=== PATIENT | female | born 1955 | race Caucasian/White ===

== ENCOUNTER 2018-07-03 08:33 | Inpatient (IN) ==
[2018-06-26 17:33] LABS: Basophils # (Auto) 0 K/mcL (0.0-0.3); Basophils % (Auto) 0.3 % (0.0-2.0); Eosinophils # (Auto) 0 K/mcL (0.0-0.7); Eosinophils % (Auto) 0.3 % (0.0-7.0); Lymphocytes % (Auto) 16.3 % (15.5-49.0); Mean Cell Volume 95.7 fL (80.0-100.0); Mean Corpuscular HGB Conc 34.2 g/dL (31.0-36.0); Mean Corpuscular Hemoglobin 32.7 pg (26.0-34.0); Monocytes # (Auto) 0.6 K/mcL (0.1-0.9); Monocytes % (Auto) 9.1 % (1.0-12.0); Platelet Count 276 K/mcL (140-440); Red Cell Distribution Width 12.6 % (11.5-14.5)
[2018-06-26 17:57] LABS: Blood Urea Nitrogen 5 mg/dl (8-23)
[2018-06-26 18:12] LABS: Appearance,Urine CLEAR; Bilirubin,Urine NEG (NEG); Color,Urine YELLOW; Glucose,Urine (UA) 150 mg/dL (NEG); Leukocyte Esterase,Urine NEG /uL (NEG); Protein,Urine NEG (NEG); Specific Gravity,Urine 1.014 (1.000-1.035); Urine Blood NEG mg/dL (<0.03)
[2018-06-26 19:00] LABS: Estimated Average Glucose(eAG) 111 mg/dL; Hemoglobin A1C 5.5 % HGB (4.0-6.0)
[~2018-07-03 08:33] MED LIST: 0.9 % SODIUM CHLORIDE 9 ML, KETOROLAC 30 MG, ROPIVACAINE HCL/PF 49.5 ML, EPINEPHrine 0.... IJ SCH; CELECOXIB 200 MG CAPSULE PO SCH; GABAPENTIN 300 MG CAPSULE PO SCH; ceFAZolin 1 GM VIAL IV SCH; oxyCODONE 10 MG TAB.ER.12H PO SCH
[2018-07-03] MEDS ORDERED: ONDANSETRON 4 MG/2 ML VIAL IV ONE (13:30)
[2018-07-03] MEDS ORDERED: MIDAZOLAM 5 MG/5 ML VIAL IV ONE (13:30)
[2018-07-03] MEDS ORDERED: PROPOFOL 200 MG/20 ML VIAL IV ONE (13:30)
[2018-07-03] MEDS ORDERED: TRANEXAMIC ACID 1,000 MG/10 ML VIAL IV ONE (13:30)
[2018-07-03] MEDS ORDERED: ROPIVACAINE HCL/PF 20 ML VIAL IJ ONE (13:30)
[2018-07-03] MEDS ORDERED: GLYCOPYRROLATE 0.2 MG/ML VIAL IV ONE (13:30)
[2018-07-03] MEDS ORDERED: LIDOCAINE HCL/PF 100 MG/5 ML SYRINGE IV ONE (13:30)
[2018-07-03] MEDS ORDERED: DEXAMETHASONE 10 MG/ML VIAL IV ONE (13:30)
[2018-07-03] MEDS ORDERED: ATROPINE SULFATE 0.4 MG/ML VIAL IV PRN (14:38)
[2018-07-03] MEDS ORDERED: ONDANSETRON 4 MG/2 ML VIAL IV PRN ×2 (14:38→15:09)
[2018-07-03] MEDS ORDERED: METHOCARBAMOL 1,000 MG/10 ML VIAL IV PRN (14:38)
[2018-07-03] MEDS ORDERED: MEPERIDINE 25 MG/ML SYRINGE IV PRN (14:38)
[2018-07-03] MEDS ORDERED: PROMETHAZINE 25 MG/ML VIAL IV PRN (14:38)
[2018-07-03] MEDS ORDERED: NALOXONE HCL 0.4 MG/ML VIAL IV PRN (14:38)
[2018-07-03] MEDS ORDERED: ACETAMINOPHEN 1,000 MG/100 ML BOTTLE IV ONE (14:38)
[2018-07-03] MEDS ORDERED: diphenhydrAMINE 50 MG/ML VIAL IV PRN (14:38)
[2018-07-03] MEDS ORDERED: METOPROLOL TARTRATE 5 MG/5 ML VIAL IV PRN (14:38)
[2018-07-03] MEDS ORDERED: ePHEDrine 50 MG/ML AMPUL IV PRN (14:38)
[2018-07-03] MEDS ORDERED: IPRATROPIUM/ALBUTEROL 3 ML AMPUL.NEB NEB PRN (14:38)
[2018-07-03] MEDS ORDERED: HYDROmorphone 2 MG/ML VIAL IV PRN ×2 (14:38→15:09)
[2018-07-03] MEDS ORDERED: FLUMAZENIL 0.1 MG/ML ML IV PRN (14:38)
[2018-07-03] MEDS ORDERED: LACTATED RINGERS 1,000 ML IV SCH (14:45)
--- NOTE | 2018-07-03 15:08 | Brief Operative Note ---
Date of procedure: 07/03/18 Pre-op diagnosis: Left knee DJD Post-op diagnosis: same Procedure: Left robotic assisted total knee arthroplasty Grafts/Implants: Yes (Chalo Triathlon CR 3 femur, 2 tibia, 9mm insert, 33 patella) Anesthesia: spinal, GLMA Findings: arthritis Complications: none Surgeon: Giovany Conti Picker / Packer: Joseluis Ramon Estimated blood loss (cc): 30 Specimens Removed/Pathology: none sent Condition: stable Disposition: PACU
[2018-07-03] MEDS ORDERED: MAGNESIUM HYDROXIDE 30 ML ORAL.SUSP PO PRN (15:09)
[2018-07-03] MEDS ORDERED: TRANEXAMIC ACID 1,000 MG/10 ML VIAL IV SCH (15:09)
[2018-07-03] MEDS ORDERED: FLEETS ADULT ENEMA PR PRN (15:09)
[2018-07-03] MEDS ORDERED: BISACODYL 10 MG SUPP.RECT PR PRN (15:09)
[2018-07-03] MEDS ORDERED: POLYETHYLENE GLYCOL 3350 17 GM PACKET PO PRN (15:09)
[2018-07-03] MEDS ORDERED: BENZOCAINE/MENTHOL 1 LOZENGE PO PRN (15:09)
[2018-07-03] MEDS ORDERED: DEXTROSE 31 GM ORAL.SUSP PO PRN (15:13)
[2018-07-03] MEDS ORDERED: DEXTROSE 50% 50 ML VIAL IV PRN (15:13)
[2018-07-03] MEDS: fentaNYL 100 MCG/2 ML VIAL IV PRN ×2 (16:01→16:08)
[2018-07-03] MEDS: 0.9 % SODIUM CHLORIDE 1,000 ML IV SCH (16:36)
--- NOTE | 2018-07-03 16:47 | XRay Report ---
CLINICAL INFORMATION: ITS.REASON: Post-op total knee COMPARISON: None. FINDINGS: Total knee prostheses is anatomically aligned. No osseous abnormality. Periarticular gas and soft tissue swelling seen as expected. IMPRESSION: Negative Interpreted and Authenticated by: Cain Carver 07/03/18
[2018-07-03] MEDS: KETOROLAC 30 MG/ML VIAL IV SCH (17:29)
[2018-07-03] MEDS: INSULIN LISPRO 1 UNIT/0.01 ML UNIT SQ SCH ×2 (17:32→21:15)
[2018-07-03] MEDS: metFORMIN 500 MG TABLET PO SCH (17:32)
[2018-07-03] MEDS: oxyCODONE/APAP 5/325MG TABLET PO PRN ×2 (18:34→22:26)
[2018-07-03] MEDS: ceFAZolin 1 GM VIAL IV SCH (21:13)
[2018-07-03] MEDS: BRIMONIDINE OPHTH DROPS 1 GTT BOTTLE 5ML OU SCH (21:14)
[2018-07-03] MEDS: BENZTROPINE 1 MG TABLET PO SCH (21:15)
[2018-07-03] MEDS: SENNOSIDES 1 TABLET PO SCH (21:15)
[2018-07-03] MEDS: SIMVASTATIN 10 MG TABLET PO SCH (21:15)
[2018-07-03] MEDS: GABAPENTIN 300 MG CAPSULE PO SCH (21:15)
[2018-07-03] MEDS: DOCUSATE SODIUM 100 MG CAPSULE PO SCH (21:15)
[2018-07-03] MEDS: PROPRANOLOL 60 MG CAP.XL.24H PO SCH (21:15)
[2018-07-03] MEDS: BACLOFEN 10 MG TABLET PO SCH (21:15)
[2018-07-03] MEDS: ASPIRIN 325 MG ENTERIC COATED TABLET PO SCH (21:15)
[2018-07-03] MEDS: hydrOXYzine 25 MG TABLET PO SCH (21:15)
[2018-07-03] MEDS: TRAVOPROST OPHTH DROPS BOTTLE 2.5ML OU SCH (21:16)
[2018-07-03] MEDS: carBAMazepine 200 MG TABLET PO SCH (21:16)
[2018-07-03] MEDS: Melatonin [Melatonin] 5 MG Tablet PO SCH (21:26)
[2018-07-03] MEDS: 0.9 % SODIUM CHLORIDE 10 ML SYRINGE IV SCH (21:28)
[2018-07-04] MEDS: KETOROLAC 30 MG/ML VIAL IV SCH ×5 (00:08→23:45)
[2018-07-04] MEDS: QUEtiapine 25 MG TABLET PO PRN ×3 (01:37→19:48)
[2018-07-04] MEDS: oxyCODONE/APAP 5/325MG TABLET PO PRN ×5 (02:43→23:45)
[2018-07-04] MEDS: 0.9 % SODIUM CHLORIDE 1,000 ML IV SCH ×3 (02:44→19:58)
[2018-07-04] MEDS: BRIMONIDINE OPHTH DROPS 1 GTT BOTTLE 5ML OU SCH ×3 (05:16→19:47)
[2018-07-04] MEDS: 0.9 % SODIUM CHLORIDE 10 ML SYRINGE IV SCH ×4 (06:05→20:57)
[2018-07-04] MEDS: ceFAZolin 1 GM VIAL IV SCH (06:05)
[2018-07-04] MEDS: metFORMIN 500 MG TABLET PO SCH ×2 (07:07→17:31)
[2018-07-04] MEDS: OMEPRAZOLE 20 MG CAPSULE PO SCH (07:07)
[2018-07-04] MEDS: INSULIN LISPRO 1 UNIT/0.01 ML UNIT SQ SCH ×4 (07:08→19:58)
--- NOTE | 2018-07-04 07:51 | Orthopedic Progress Note ---
Orthopedics - Auxillary Note - Subjective Patient Information: Note initiated : 07/04/18 at 7:49 am Service Date, if different from initiated Date: [] Patient: Ngozi Johnson 63 y/o F admitted on 07/03/18 for Left Total Knee Arthroplasty Juancarlos. Chief Complaint: mild pain bandages mild bloody drainage. nvi-distal Vital Signs Temp Pulse Pulse Resp BP BP Pulse Ox 07/04/18 06:34 96.5 F L 66 17 99/61 97 07/04/18 04:24 97.2 F 61 16 111/76 98 07/03/18 23:59 97.3 F 61 16 99/62 96 07/03/18 19:16 97.0 F 71 16 135/64 98 07/03/18 18:14 73 146/77 96 07/03/18 17:46 61 125/57 96 07/03/18 17:38 98 07/03/18 17:30 66 127/79 100 07/03/18 17:15 58 L 137/60 100 07/03/18 17:00 57 L 107/52 100 07/03/18 16:43 62 16 124/69 100 07/03/18 16:30 96.4 F L 62 129/56 100 07/03/18 16:16 97.0 F 65 18 135/51 100 07/03/18 16:01 97.0 F 63 12 152/67 100 07/03/18 15:46 70 12 145/77 100 07/03/18 15:31 97.3 F 71 11 L 144/76 100 07/03/18 08:57 96.7 F L 85 18 114/80 92 Intake and Output 07/03/18 07/04/18 07/04/18 21:59 05:59 13:59 Intake Total 2480 / 2480 1903 / 1903 Output Total 1290 / 1290 675 / 675 200 / 200 Balance 1190 / 1190 1228 / 1228 -200 / -200 Intake: IV 100 / 100 1303 / 1303 Sodium Chloride 0.9% 1,000 ml @ 1303 / 1303 100 mls/hr IV .Q10H [facility] Rx#: [id number] Oral 480 / 480 600 / 600 IV - Manual Only 1900 / 1900 Output: Urine Catheter Amount 900 / 900 Void Amount 350 / 350 675 / 675 200 / 200 Estimated Blood Loss 40 / 40 Other: Meal Dinner Sherbet Percent of Meal Consumed 100% 100% Feeding Ability Independent Independent Urine Appearance Clear Urine Color Straw Urine Odor Normal # Voids 1 1 Weight 187 lb 8 oz Laboratory Results - last 24 hr 07/03/18 10:03 POC Hct 36.0 POC Sodium 129 L POC Potassium 3.9 POC Chloride 90 L POC Total CO2 26 POC BUN < 3 L POC Creatinine 0.5 L POC Glucose 114 H POC WB Ioniz Calcium 1.19 1 day s/p L TKA-stable mobilize with PT discharge to SNF post-op day 3.
--- NOTE | 2018-07-04 08:21 | Operative Note ---
DATE OF OPERATION: 07/03/2018 PREOPERATIVE DIAGNOSIS: Left knee advanced osteoarthritis. POSTOPERATIVE DIAGNOSIS: Left knee advanced osteoarthritis. PROCEDURE PERFORMED: Left robotic-assisted total knee arthroplasty placing a Chalo Triathlon size 3 cruciate retaining femoral component, size 2 tibial baseplate, a 9 mm X3 tibial insert with a 33 mm patellar button. SURGEON: Giovany Conti MD WARDROBE ATTENDANT: Kermit Ramon PA-C. ANESTHESIA: Spinal plus general. DRAINS: None. SPECIMENS: None. COMPLICATIONS: None. BLOOD LOSS: 30 mL POSTOPERATIVE CONDITION: Stable. INDICATIONS FOR SURGERY: This is a 63-year-old female who has had progressive worsening knee pain. Radiographs showed near [id number] osteoarthritis. MRI also confirmed advanced arthritis. FINDINGS AT SURGERY: She did have advanced arthritis, medial and moderate arthritis of the trochlear groove. She also had a fairly severe hyperlaxity with hyperextension of almost 15 degrees. Post implantation showed good joint stability, patellar tracking, and hyperextension of only 3 degrees. PROCEDURE IN DETAIL: The patient had been seen preoperatively. Informed consent had already been obtained after discussion of risks and benefits of surgery. Risks including, but not limited to, bleeding; infection, possibly requiring implant removal, prolonged IV antibiotics; injury to nerves, blood vessels other surrounding structures; anesthetic risks; incomplete or no resolution of symptoms; stiffness; pain; swelling; instability; DVT and pulmonary embolus risks; and the possibility of needing revision surgeries. She understood these risks and wished to proceed. Correct operative site was marked and the patient was given spinal anesthesia. She was then taken to the operating room and LMA general given. Left lower extremity was carefully prepped and draped in normal sterile fashion. Timeout was performed verifying patient name, operative site, and plan. Esmarch was used to exsanguinate the extremity and tourniquet was inflated. Midline incision was made with a scalpel through skin and subcutaneous tissue and IrriSept was irrigated and then a medial parapatellar arthrotomy made. Subperiosteal exposure was done of the anterior medial tibia. Anterior horns of the menisci resected and the ACL was resected as well. Checkpoints were placed on the femur and tibia. Two stab incisions were made over the femur and two over the tibia and bicortical pins placed and the arrays were placed. Hip center of rotation was checked and then green probe was used to radha our medial and lateral malleoli. We also then used the green probe to do double checks of the femoral and tibial check points. We then used the blue probe and did our mapping. After the mapping was completed, we inspected and removed any osteophytes and then we checked our flexion, extension gaps. These were quite large, 20 mm both flexion and extension and even larger up to 23 mm laterally. We moved the tibia quite proximal until we had 17 mm gaps in both flexion and extension. We did have to add a degree of varus in the tibia and then 3 degrees of varus in the femur to get 17 mm gaps in all 4 areas. Once this was completed, we verified our patellar tracking and then we used the robotic arm with the saw to make our bone cuts. Once this was completed, we prepared the tibia. This did have to be downsized to a 2 and externally rotated significantly so as to not overhang laterally. We pinned this into place, did the Boss reamer and keel punch and then a keeled tibial trial was placed. Femur was elevated. There were no significant posterior osteophytes. We placed the femoral trial. She ended up being actually quite tight laterally, so we felt the IT band was under quite a bit of tension, so I pie crusted this until this allowed us to get the 9 mm insert and we then checked our patella. Pre-resection thickness was about 21 mm. Freehand resection was done of the patella and post-resection measured 12 mm. We sized this to a 33, which was medialized maximally and then holes were drilled. Patellar button was placed. We checked our post-construct and it was 22 mm. A limited lateral facetectomy was performed. We checked our patellar tracking and she did even still tend to tilt lateral and sublux so we did perform a lateral retinacular release with the Bovie starting at the superior edge of the patella approximately 1 cm lateral and then extending all the way to the tibia distally. This improved the patellar tracking, so we went ahead and removed the trial implants. Definitive implants were opened. IrriSept was irrigated while antibiotic cement was mixed. After a minute we pulse lavaged copiously with saline. Drill holes were made in the sclerotic bone and then a CO2 gun was used to clean and dry the cancellous surfaces. We then cemented the tibia followed by the femur. Excess cement was removed and then the 9 mm insert, after placing IrriSept on the tibial tray, was then impacted. The knee was taken into extension and then the patellar button was cemented. We checked our extension and her hyperextension was down from almost 15 degrees preoperatively down to between 2 to 3 degrees. We removed the checkpoints, filled the joint and IrriSept. We then removed our femoral and tibial pins. Pain cocktail was injected into the pericapsular and subcutaneous tissues. After cement was fully hardened, we did a final pulse lavage and then knee was placed in 45 degrees of flexion. Interrupted [id number] #2 FiberWires were used around the superior quadrant of the patella, interrupted #1 Vicryl [id number] around the inferior quadrant, running #1 Vicryl for patellar tendon and quad tendon. Final IrriSept irrigation was done, after a minute final pulse lavage, and 2-0 Monocryl was used for subq and parrish for skin. Xeroform sterile dressings were applied. Tourniquet was released. The patient was awakened, extubated, and transferred to recovery in stable condition. ALFREDITO:kaiser Job ID: [id number] Doc ID: [id number] Giovany Conti MD
[2018-07-04] MEDS: GABAPENTIN 300 MG CAPSULE PO SCH ×3 (08:26→19:48)
[2018-07-04] MEDS: hydrOXYzine 25 MG TABLET PO SCH ×3 (08:26→19:48)
[2018-07-04] MEDS: ASPIRIN 325 MG ENTERIC COATED TABLET PO SCH ×2 (08:27→19:48)
[2018-07-04] MEDS: carBAMazepine 200 MG TABLET PO SCH ×2 (08:27→19:48)
[2018-07-04] MEDS: DOCUSATE SODIUM 100 MG CAPSULE PO SCH ×2 (08:27→19:48)
[2018-07-04] MEDS: FLUTICASONE PROPIONATE SPRAY.NAS NS SCH (08:28)
[2018-07-04] MEDS: BENZTROPINE 1 MG TABLET PO SCH ×2 (10:06→19:48)
[2018-07-04] MEDS: ESTROGENS CONJUGATED 0.45 MG PO SCH (10:07)
[2018-07-04] MEDS ORDERED: Lurasidone Hcl [Latuda] 120 MG Tablet PO SCH (12:00)
--- NOTE | 2018-07-04 16:41 | Discharge Summary ---
Providers - Providers Patient information: Note initiated : 07/04/18 at 4:39 pm Service Date, if different from initiated Date: [] Patient: Ngozi Johnson 63 y/o F admitted on 07/03/18 for Left Total Knee Arthroplasty Juancarlos. Chief Complaint: [] Date of admission: 07/03/18 Discharge date: 07/05/18 Attending physician: Giovany Conti Hospitalization Hospital course: Admitted postoperatively for pain control and medical stabilization. She progressed satisfactorily without issues. Discharge diagnosis: s/p Left total knee arthroplasty Reason for admission: Left knee replacement Procedures: Left robotic assisted total knee arthroplasty Exam - Exam Incision draining: Yes Ortho Discharge - TKA - Patient Instructions Diet: Consistent Carbohydrate Activity: activity as tolerated, weight bearing as tolerated Total Knee Protocol: For Total Knee: Start ROM AMISHA with stationary bike or rocking chair. Work on gaining full extension of knee. Posterior dislocation precautions provided. Hip abductor strengthening and gait training instructions provided. Apply Cryocuff as instructed. Dressing Care: Aquacel Ag - leave on for 5 days - Follow Up Plan Follow Up Appointments: Joseluis Ramon PA-C [Physician Machine Plug Shaper] - 07/18/18 10:40 am Disposition: Home Health Service Prognosis: Fair Rehab Potential: Fair - Orders For Discharge Prescriptions: Aspirin [Ecotrin] 325 mg PO BID #28 tab.ec oxyCODONE/APAP [Percocet 5-325 mg] 1 - 2 tab PO Q4H PRN #90 tablet PRN Reason: Pain Additional Discharge Orders: Physical Therapy at Discharge - TKA Location: None Selected Toilet Riser Discharge Order Location: None Selected Walker Location: None Selected Pending Studies Resuscitation Status Full Code Diet Consistent Carbohydrate Diet Start SunJul 034 Aspirin (Ecotrin) 325 mg PO BID [facility] Last Admin: 07/04/18 08:27 Dose: 325 mg Admin: 07/03/18 21:15 Dose: 325 mg Baclofen (Lioresal) 10 mg PO [facility] Last Admin: 07/03/18 21:15 Dose: 10 mg Benztropine Mesylate (Cogentin) 2 mg PO BID [facility] Last Admin: 07/04/18 10:06 Dose: 2 mg Admin: 07/03/18 21:15 Dose: 2 mg Brimonidine Tartrate (Alphagan P Ophth Drops) 1 gtt OU BID [facility] Last Admin: 07/04/18 08:27 Dose: Not Given Admin: 07/04/18 05:16 Dose: 1 gtt Admin: 07/03/18 21:14 Dose: 1 gtt Carbamazepine (Tegretol) 400 mg PO BID [facility] Last Admin: 07/04/18 08:27 Dose: 400 mg Admin: 07/03/18 21:16 Dose: 400 mg Diagnostic Test (Pha) (Accu-Chek) 1 each FS ACHS [facility] Last Admin: 07/04/18 11:26 Dose: 1 each Admin: 07/04/18 07:08 Dose: 1 each Admin: 07/03/18 20:52 Dose: 1 each Admin: 07/03/18 17:32 Dose: 1 each Docusate Sodium (Colace) 100 mg PO BID [facility] Last Admin: 07/04/18 08:27 Dose: 100 mg Admin: 07/03/18 21:15 Dose: 100 mg Fluticasone Propionate (Flonase) 1 spray NS DAILY [facility] Last Admin: 07/04/18 08:28 Dose: 1 spray Gabapentin (Neurontin) 600 mg PO TID [facility] Last Admin: 07/04/18 14:38 Dose: 600 mg Admin: 07/04/18 08:26 Dose: 600 mg Admin: 07/03/18 21:15 Dose: 600 mg Hydroxyzine HCl (Atarax) 25 mg PO TID [facility] Last Admin: 07/04/18 14:38 Dose: 25 mg Admin: 07/04/18 08:26 Dose: 25 mg Admin: 07/03/18 21:15 Dose: 25 mg Sodium Chloride (Sodium Chloride 0.9%) 1,000 mls @ 100 mls/hr IV .Q10H [facility] Last Admin: 07/04/18 11:27 Dose: Infusion: 07/04/18 05:46 Dose: 0 mls/hr Admin: 07/04/18 02:44 Dose: 100 mls/hr Infusion: 07/04/18 02:36 Dose: 100 mls/hr Admin: 07/03/18 16:36 Dose: 100 mls/hr Insulin Human Lispro (Humalog) 0 unit SQ ACHS [facility]; Protocol Last Admin: 07/04/18 11:26 Dose: 2 unit Admin: 07/04/18 07:08 Dose: Not Given Admin: 07/03/18 21:15 Dose: 6 unit Admin: 07/03/18 17:32 Dose: Not Given Ketorolac Tromethamine (Toradol) 30 mg IV Q6 [facility] Stop: 07/05/18 12:01 Last Admin: 07/04/18 13:01 Dose: 30 mg Admin: 07/04/18 05:38 Dose: 30 mg Admin: 07/04/18 00:08 Dose: 30 mg Admin: 07/03/18 17:29 Dose: 30 mg Metformin HCl (Glucophage) 500 mg PO BIDCC [facility] Last Admin: 07/04/18 07:07 Dose: 500 mg Admin: 07/03/18 17:32 Dose: 500 mg Omeprazole (Prilosec) 20 mg PO ACB [facility] Last Admin: 07/04/18 07:07 Dose: 20 mg Oxycodone/Acetaminophen (Percocet 5-325 Mg) 0 tab PO Q4HP PRN PRN Reason: PAIN LEVEL 3-6 Last Admin: 07/04/18 13:00 Dose: 2 tab Admin: 07/04/18 07:07 Dose: 2 tab Admin: 07/04/18 02:43 Dose: 2 tab Admin: 07/03/18 22:26 Dose: 2 tab Admin: 07/03/18 18:34 Dose: 2 tab Estrogens, Conjugated 0.45 Mg Tablet (Premarin) 1 dose PO DAILY [facility] Last Admin: 07/04/18 10:07 Dose: Not Given Lurasidone Hcl [ Latuda] 120 Mg Tablet 1 dose PO DAILY@1200 [facility] Last Admin: 07/04/18 14:07 Dose: Not Given Melatonin [Melatonin (] 5 Mg Tablet) 1 dose PO HS [facility] Last Admin: 07/03/18 21:26 Dose: Not Given Propranolol HCl (Inderal La) 60 mg PO [facility] Last Admin: 07/03/18 21:15 Dose: 60 mg Quetiapine Fumarate (Seroquel) 25 mg PO TIDP PRN PRN Reason: Anxiety Last Admin: 07/04/18 10:06 Dose: 25 mg Admin: 07/04/18 01:37 Dose: 25 mg Senna (Senokot) 2 tab PO HS [facility] Last Admin: 07/03/18 21:15 Dose: 2 tab Simvastatin (Zocor) 10 mg PO [facility] Last Admin: 07/03/18 21:15 Dose: 10 mg Sodium Chloride (Saline Flush) 10 ml IV Q8 [facility] Last Admin: 07/04/18 14:39 Dose: 10 ml Admin: 07/04/18 06:05 Dose: 10 ml Admin: 07/03/18 21:28 Dose: Not Given Travoprost (Travatan Z Ophth Drops) 1 gtt OU HS [facility] Last Admin: 07/03/18 21:16 Dose: 1 gtt Shift Summary 07/04/18 03:25 Shift Summary by Catina Ortiz Patient alert and oriented. Patient unable to sleep this shift. Medicated for left knee pain 10/ with Percocet 2 tabs x2 with moderate effect. Also given Quetiapine PRN for anxiety x1. BSL at bedtime 207. Given sliding scale insulin 6 units. Up with SBA using FWW and GB to the hallway.Denies any numbness on legs and feet. Ambulated 75ft. Dressing on left knee CDI. Cryo-cuff applied. TEDs on right leg. IV on left hand will saline lock at shift change. Patient eating and drinking well. Voids adequately. Last PVR of 100mls at 0325H. Some of patient own meds in pt box in tower Med room. VSS. Initialized on 07/04/18 03:25 - END OF NOTE
[2018-07-04] MEDS: TRAVOPROST OPHTH DROPS BOTTLE 2.5ML OU SCH (19:47)
[2018-07-04] MEDS: SENNOSIDES 1 TABLET PO SCH (19:48)
[2018-07-04] MEDS: PROPRANOLOL 60 MG CAP.XL.24H PO SCH (19:48)
[2018-07-04] MEDS: BACLOFEN 10 MG TABLET PO SCH (19:48)
[2018-07-04] MEDS: Melatonin [Melatonin] 5 MG Tablet PO SCH (19:48)
[2018-07-04] MEDS: SIMVASTATIN 10 MG TABLET PO SCH (19:48)
[2018-07-05] MEDS: oxyCODONE/APAP 5/325MG TABLET PO PRN (04:30)
[2018-07-05] MEDS: 0.9 % SODIUM CHLORIDE 10 ML SYRINGE IV SCH (05:39)
[2018-07-05] MEDS: KETOROLAC 30 MG/ML VIAL IV SCH (05:39)
--- NOTE | 2018-07-05 07:35 | Discharge Summary ---
Providers - Providers Patient information: Note initiated : 07/05/18 at 7:33 am Service Date, if different from initiated Date: [] Patient: Ngozi Johnson 63 y/o F admitted on 07/03/18 for Left Total Knee Arthroplasty Juancarlos. Chief Complaint: [] Discharge date: 07/05/18 Hospitalization Hospital course: Pt was admitted for a L TKA. Pt admitted on days of the procedure. Spent two nights on the floor prior to discharge. Pt discharged with Home Health. WIll use ASA for DVT prophylaxis. Will f/u at [facility] in 2 weeks. Discharge diagnosis: L knee OA Exam - Exam Clean and dry: Yes Weight bearing status: as tolerated Ortho Discharge - TKA - Patient Instructions Diet: Regular Diet, Consistent Carbohydrate Activity: activity as tolerated, weight bearing as tolerated Total Knee Protocol: For Total Knee: Start ROM AMISHA with stationary bike or rocking chair. Work on gaining full extension of knee. Posterior dislocation precautions provided. Hip abductor strengthening and gait training instructions provided. Apply Cryocuff as instructed. Dressing Care: May shower in 2 days - Follow Up Plan Follow Up Appointments: Joseluis Ramon PA-C [Physician Pathology Lab Technician] - 07/18/18 10:40 am Disposition: Home, Self-Care Prognosis: Fair Rehab Potential: Fair Overall status at discharge: patient is progressing back to baseline - Orders For Discharge Prescriptions: Aspirin [Ecotrin] 325 mg PO BID #28 tab.ec oxyCODONE/APAP [Percocet 5-325 mg] 1 - 2 tab PO Q4H PRN #90 tablet PRN Reason: Pain Additional Discharge Orders: Physical Therapy at Discharge - TKA Location: None Selected [facility] Discharge Order Location: None Selected Walker Location: None Selected Pending Studies Resuscitation Status Full Code Diet Consistent Carbohydrate Diet Start SunJul 03 1514 Aspirin (Ecotrin) 325 mg PO BID [facility] Last Admin: 07/04/18 19:48 Dose: 325 mg Admin: 07/04/18 08:27 Dose: 325 mg Admin: 07/03/18 21:15 Dose: 325 mg Baclofen (Lioresal) 10 mg PO HS [facility] Last Admin: 07/04/18 19:48 Dose: 10 mg Admin: 07/03/18 21:15 Dose: 10 mg Benztropine Mesylate (Cogentin) 2 mg PO BID [facility] Last Admin: 07/04/18 19:48 Dose: 2 mg Admin: 07/04/18 10:06 Dose: 2 mg Admin: 07/03/18 21:15 Dose: 2 mg Brimonidine Tartrate (Alphagan P Ophth Drops) 1 gtt OU BID [facility] Last Admin: 07/04/18 19:47 Dose: 1 gtt Admin: 07/04/18 08:27 Dose: Not Given Admin: 07/04/18 05:16 Dose: 1 gtt Admin: 07/03/18 21:14 Dose: 1 gtt Carbamazepine (Tegretol) 400 mg PO BID [facility] Last Admin: 07/04/18 19:48 Dose: 400 mg Admin: 07/04/18 08:27 Dose: 400 mg Admin: 07/03/18 21:16 Dose: 400 mg Diagnostic Test (Pha) (Accu-Chek) 1 each FS ACHS [facility] Last Admin: 07/04/18 19:58 Dose: 1 each Admin: 07/04/18 16:46 Dose: 1 each Admin: 07/04/18 11:26 Dose: 1 each Admin: 07/04/18 07:08 Dose: 1 each Admin: 07/03/18 20:52 Dose: 1 each Admin: 07/03/18 17:32 Dose: 1 each Docusate Sodium (Colace) 100 mg PO BID [facility] Last Admin: 07/04/18 19:48 Dose: 100 mg Admin: 07/04/18 08:27 Dose: 100 mg Admin: 07/03/18 21:15 Dose: 100 mg Fluticasone Propionate (Flonase) 1 spray NS DAILY [facility] Last Admin: 07/04/18 08:28 Dose: 1 spray Gabapentin (Neurontin) 600 mg PO TID [facility] Last Admin: 07/04/18 19:48 Dose: 600 mg Admin: 07/04/18 14:38 Dose: 600 mg Admin: 07/04/18 08:26 Dose: 600 mg Admin: 07/03/18 21:15 Dose: 600 mg Hydroxyzine HCl (Atarax) 25 mg PO TID [facility] Last Admin: 07/04/18 19:48 Dose: 25 mg Admin: 07/04/18 14:38 Dose: 25 mg Admin: 07/04/18 08:26 Dose: 25 mg Admin: 07/03/18 21:15 Dose: 25 mg Sodium Chloride (Sodium Chloride 0.9%) 1,000 mls @ 100 mls/hr IV .Q10H [facility] Last Admin: 07/04/18 19:58 Dose: Admin: 07/04/18 11:27 Dose: Infusion: 07/04/18 05:46 Dose: 0 mls/hr Admin: 07/04/18 02:44 Dose: 100 mls/hr Infusion: 07/04/18 02:36 Dose: 100 mls/hr Admin: 07/03/18 16:36 Dose: 100 mls/hr Insulin Human Lispro (Humalog) 0 unit SQ ACHS [facility]; Protocol Last Admin: 07/04/18 19:58 Dose: Not Given Admin: 07/04/18 16:46 Dose: Not Given Admin: 07/04/18 11:26 Dose: 2 unit Admin: 07/04/18 07:08 Dose: Not Given Admin: 07/03/18 21:15 Dose: 6 unit Admin: 07/03/18 17:32 Dose: Not Given Ketorolac Tromethamine (Toradol) 30 mg IV Q6 [facility] Stop: 07/05/18 12:01 Last Admin: 07/05/18 05:39 Dose: 30 mg Admin: 07/04/18 23:45 Dose: 30 mg Admin: 07/04/18 17:31 Dose: 30 mg Admin: 07/04/18 13:01 Dose: 30 mg Admin: 07/04/18 05:38 Dose: 30 mg Admin: 07/04/18 00:08 Dose: 30 mg Admin: 07/03/18 17:29 Dose: 30 mg Metformin HCl (Glucophage) 500 mg PO BIDCC [facility] Last Admin: 07/04/18 17:31 Dose: 500 mg Admin: 07/04/18 07:07 Dose: 500 mg Admin: 07/03/18 17:32 Dose: 500 mg Omeprazole (Prilosec) 20 mg PO ACB [facility] Last Admin: 07/04/18 07:07 Dose: 20 mg Oxycodone/Acetaminophen (Percocet 5-325 Mg) 0 tab PO Q4HP PRN PRN Reason: PAIN LEVEL 3-6 Last Admin: 07/05/18 04:30 Dose: 2 tab Admin: 07/04/18 23:45 Dose: 2 tab Admin: 07/04/18 17:31 Dose: 2 tab Admin: 07/04/18 13:00 Dose: 2 tab Admin: 07/04/18 07:07 Dose: 2 tab Admin: 07/04/18 02:43 Dose: 2 tab Admin: 07/03/18 22:26 Dose: 2 tab Admin: 07/03/18 18:34 Dose: 2 tab Estrogens, Conjugated 0.45 Mg Tablet (Premarin) 1 dose PO DAILY [facility] Last Admin: 07/04/18 10:07 Dose: Not Given Lurasidone Hcl [ Latuda] 120 Mg Tablet 1 dose PO DAILY@1200 [facility] Last Admin: 07/04/18 14:07 Dose: Not Given Melatonin [Melatonin (] 5 Mg Tablet) 1 dose PO HS [facility] Last Admin: 07/04/18 19:48 Dose: 1 dose Admin: 07/03/18 21:26 Dose: Not Given Propranolol HCl (Inderal La) 60 mg PO HS [facility] Last Admin: 07/04/18 19:48 Dose: 60 mg Admin: 07/03/18 21:15 Dose: 60 mg Quetiapine Fumarate (Seroquel) 25 mg PO TIDP PRN PRN Reason: Anxiety Last Admin: 07/04/18 19:48 Dose: 25 mg Admin: 07/04/18 10:06 Dose: 25 mg Admin: 07/04/18 01:37 Dose: 25 mg Senna (Senokot) 2 tab PO HS [facility] Last Admin: 07/04/18 19:48 Dose: 2 tab Admin: 07/03/18 21:15 Dose: 2 tab Simvastatin (Zocor) 10 mg PO HS [facility] Last Admin: 07/04/18 19:48 Dose: 10 mg Admin: 07/03/18 21:15 Dose: 10 mg Sodium Chloride (Saline Flush) 10 ml IV Q8 [facility] Last Admin: 07/05/18 05:39 Dose: 10 ml Admin: 07/04/18 20:57 Dose: Admin: 07/04/18 19:54 Dose: 10 ml Admin: 07/04/18 14:39 Dose: 10 ml Admin: 07/04/18 06:05 Dose: 10 ml Admin: 07/03/18 21:28 Dose: Not Given Travoprost (Travatan Z Ophth Drops) 1 gtt OU HS [facility] Last Admin: 07/04/18 19:47 Dose: 1 gtt Admin: 07/03/18 21:16 Dose: 1 gtt Shift Summary 07/05/18 03:51 Shift Summary by Michelle Stringer Pt is up at niya in room and up with SBA in hallway. Pain controlled with Percocet and Toradol. Pt has been trying to be as independent as possible for discharge. Pt is steady on feet. Pt has a lot of home meds, if pt discharges please make sure home meds go home with pt. Pt has 4wheel walker in room that she wanted to work with prior to discharge. IV is sl. Will update with verbal report. Initialized on 07/05/18 03:51 - END OF NOTE
--- NOTE | 2018-07-05 07:53 | Orthopedic History & Physical ---
History of Present Illness Patient information: Note initiated : 07/05/18 at 7:50 am Service Date, if different from initiated Date: [] Patient: Ngozi Johnson 63 y/o F admitted on 07/03/18 for Left Total Knee Arthroplasty [facility]. Chief Complaint: [] HPI: Ms. Johnson is a 63 year old F Medications and Allergies Home Medications Medication Instructions Recorded Confirmed Type Baclofen [Lioresal] 10 mg PO HS 06/26/18 06/26/18 History Benztropine [Cogentin] 2 mg PO BID 06/26/18 06/26/18 History Brimonidine Ophth Drops [Alphagan 1 gtt OU BID 06/26/18 06/26/18 History P Ophth Drops] Estrogens, Conjugated [Premarin] 0.45 mg PO DAILY 06/26/18 06/26/18 History Ferrous Sulfate 325 mg PO BIDCC 06/26/18 06/26/18 History Fluticasone Propionate [Flonase] 1 spray NS DAILY 06/26/18 06/26/18 History Gabapentin [Neurontin] 600 mg PO TID 06/26/18 06/26/18 History Lurasidone HCl [Latuda] 120 mg PO QNOON 06/26/18 06/26/18 History Melatonin 5 mg PO DAILY 06/26/18 06/26/18 History Omeprazole [PriLOSEC] 20 mg PO ACB 06/26/18 06/26/18 History Pravastatin [Pravachol] 20 mg PO HS 06/26/18 06/26/18 History Propranolol [Inderal LA] 60 mg PO HS 06/26/18 06/26/18 History QUEtiapine [SEROquel] 25 mg PO TIDP PRN 06/26/18 06/26/18 History Travoprost Ophth Drops [Travatan Z 1 gtt OU HS 06/26/18 06/26/18 History Ophth Drops] carBAMazepine [TEGretol] 400 mg PO BID 06/26/18 06/26/18 History hydrOXYzine PAMOATE [Vistaril] 25 mg PO TID 06/26/18 06/26/18 History metFORMIN [Glucophage] 500 mg PO BIDCC 06/26/18 06/26/18 History Risperdal 50 mg IM Q2W 07/03/18 07/03/18 History Aspirin [Ecotrin] 325 mg PO BID #28 tab.ec 07/04/18 Rx oxyCODONE/APAP [Percocet 5-325 mg] 1 - 2 tab PO Q4H PRN #90 tablet 07/04/18 Rx Allergies Allergy/AdvReac Type Severity Reaction Status Date / Time milk AdvReac Mild Wheezing Verified 07/03/18 09:28 morphine AdvReac Mild Hallucinati Verified 07/03/18 09:28 ng diazepam [From Valium] AdvReac Other Verified 07/03/18 14:06 fluoxetine [From Prozac] AdvReac Other Verified 07/03/18 14:06 latex AdvReac Other Verified 07/03/18 14:06 sertraline [From Zoloft] AdvReac Other Verified 07/03/18 14:06 sulfamethoxazole AdvReac Other Verified 07/03/18 14:06 [From Septra] trimethoprim [From Septra] AdvReac Other Verified 07/03/18 14:06 chocolate AdvReac Mild Diarrhea Uncoded 06/26/18 14:08 Results - Labs Result Diagrams: 06/26/18 15:05 06/26/18 15:05 Labs: H & H 06/26/18 Range/Units 15:05 Hgb 12.4 (12.0-15.0) g/dL Hct 36.3 (36.0-48.0) % All other labs normal.
[2018-07-05] MEDS: hydrOXYzine 25 MG TABLET PO SCH (07:57)
[2018-07-05] MEDS: GABAPENTIN 300 MG CAPSULE PO SCH (07:58)
[2018-07-05] MEDS: metFORMIN 500 MG TABLET PO SCH (07:58)
[2018-07-05] MEDS: OMEPRAZOLE 20 MG CAPSULE PO SCH (07:59)
[2018-07-05] MEDS: BENZTROPINE 1 MG TABLET PO SCH (07:59)
[2018-07-05] MEDS: ASPIRIN 325 MG ENTERIC COATED TABLET PO SCH (07:59)
[2018-07-05] MEDS: DOCUSATE SODIUM 100 MG CAPSULE PO SCH (07:59)
[2018-07-05] MEDS: carBAMazepine 200 MG TABLET PO SCH (08:01)
[2018-07-05] MEDS: BRIMONIDINE OPHTH DROPS 1 GTT BOTTLE 5ML OU SCH (08:02)
[2018-07-05] MEDS: FLUTICASONE PROPIONATE SPRAY.NAS NS SCH (08:02)
[2018-07-05] MEDS: 0.9 % SODIUM CHLORIDE 1,000 ML IV SCH (08:03)
[2018-07-05] MEDS: INSULIN LISPRO 1 UNIT/0.01 ML UNIT SQ SCH (09:33)
[2018-07-05] MEDS: ESTROGENS CONJUGATED 0.45 MG PO SCH (09:33)
[2018-07-17] MEDS ORDERED: RISPERDAL IM SCH (09:00)
== END 2018-07-05 12:05 | disposition home or self-care (01) | DRG 470 ==
LOC: MEDSUR 08:33
PROVIDERS: ADMIT Orthopaedic Surgery; ATTEND Orthopaedic Surgery